=== PATIENT | male | born 1965 | race Caucasian/White ===

== ENCOUNTER 2023-10-06 19:20 | Emergency (ER) | payer OTHER, SELFPAY ==
[2023-10-06 19:22] VITALS: BP 165/88
[2023-10-06 19:38] VITALS: BP 162/90
[2023-10-06 19:39] LABS: Glucose - Point of Care 152 mg/dl (70-99)
[2023-10-06 19:41] VITALS: BMI 30.2
[2023-10-06 19:59] LABS: % Basophils 0.7 % (0-2); % Eosinophils 2.4 % (0-6); % Immature Granulocytes 0.4 % (0-0.5); % Lymphocytes 23.6 % (20.5-51.1); % Monocytes 7.7 % (1.7-9.3); % Neutrophils 65.2 % (42.2-75.2); Absolute Eosinophils 0.1 10^3/uL (0-0.7); Absolute Lymphocytes 1.3 10^3/uL (1.2-3.4); Absolute Monocytes 0.4 10^3/uL (0.1-0.6); Absolute Neutrophils 3.5 10^3/uL (1.4-6.5); Hematocrit 40.2 % (39.0-52.0); Hemoglobin 14.8 g/dL (13.0-18.0); Mean Corp Hgb Conc. 36.8 g/dL (33.0-37.0); Mean Corpuscular Volume 81.4 fL (80.0-94.0); Mean Platelet Volume 9.7 fL (7.4-10.4); Nucleated Red Blood Cells % 0 % (-); Platelet Count 186 10^3/uL (130-400); Red Blood Cell Count 4.94 10^6/uL (4.70-6.10); Red Cell Dist. Width 13.3 % (11.5-14.5); White Blood Cell Count 5.3 10^3/uL (4.8-10.8)
[2023-10-06 20:00] VITALS: BP 134/86
[2023-10-06 20:15] LABS: ALT (SGPT) 56 U/L (0-50); AST (SGOT) 34 U/L (17-59); Albumin 4.7 g/dl (3.5-5.0); Alkaline Phosphatase 72 U/L (38-126); Blood Urea Nitrogen 9 mg/dl (9-20); Calcium 10.3 mg/dl (8.4-10.2); Carbon Dioxide 28 mmol/L (22-30); Chloride 100 mmol/L (98-107); Estimated Creatinine Clearance 123 ml/min; Glucose 157 mg/dl (70-99); Potassium 3.9 mmol/L (3.5-5.1); Sodium 138 mmol/L (135-145); Total Bilirubin 0.8 mg/dl (0.2-1.3); Total Protein 7.3 g/dl (6.3-8.2); eGFR > 60.00
[2023-10-06] MEDS: NSS 1000 IV (20:18)
[2023-10-06] MEDS: ZOFRAN 4 MG IV (20:18)
[2023-10-06 20:24] LABS: Troponin I < 0.012 ng/ml
--- NOTE | 2023-10-06 20:32 | ED.GENMED ---
History of Present Illness
General
Chief Complaint: Dizziness
Source: patient and family
Exam Limitations: none
Time Seen by Provider: 10/06/23 19:58
Nursing documentation reviewed up to this point in time: agreed with
Travel History
Have you had any contact with someone who has COVID-19?: No
Do you have any symptoms of coronavirus? Fever > 100 degrees, chills, cough, shortness of breath, sore throat, loss of taste or smell, muscle aches, or headache?: No
History of Present Illness
History of Present Illness:
58-year-old male diabetes hypertension presents with dizziness, fairly acute onset this morning when he woke up worse with head movement and sitting up better with rest improved and then worsened later in the day, appears to be worse when he moves
his head to the right, nausea without vomiting, no headache, type 2 diabetes on metformin started Ozic a few weeks ago, ended July had upper respiratory infection negative home COVID test, treated with antibiotics steroids, improved
wondering if this could be a lingering effect of this upper respiratory infection, status or speech arm or leg weakness, no headaches, had a similar less severe episode of vertigo years ago treated with what sounds like meclizine
Past History
Past History
ED Past Medical History: GERD, NIDDM and Hypothyroidism
ED Past Surgical History: None
Social History
Tobacco: Non-smoker
Alcohol: Occasional
Drug: None
Personal:
Living: with family
Employment: Employed
Review of Systems
Review of Systems
All Other Systems: Not applicable
Constitutional: Denies fever, fatigue or chills
EENT: Denies no symptoms
Respiratory: Reports no symptoms
Cardiac: Reports no symptoms
ABD/GI: Reports nausea; Denies abdominal pain or vomiting
: Reports no symptoms
Neurological: Reports dizzy; Denies weakness or numbness
Endocrine: Reports no symptoms
Hematologic/Lymphatic: Reports no symptoms
Phy Exam
Physical Exam
Physical Exam:
Physical Exam
General: 58 male normal mental status nontoxic
Neck: No jaundice
Heart: s1/s2 regular rate and rhythm, no murmur. equal radial pulses.
Lungs: no acute respiratory distress. clear bilaterally
Abdomen: Not
Neuro: alert and oriented. no focal neurological deficits 2 beats of horizontal nystagmus to the right no pronator drift normal finger-nose bilaterally
Skin: no rash
Psychiatric: well kept. interactive and cooperative
Extremities: no edema.
Course
Orders/Labs/Results
Orders:
Orders
10/06/23 19:28
Electrocardiogram (*1) Urgent
Reason for Study: Vertigo / Dizzy
EKG- Treatment ONCE
Accucheck Once [Bedside Glucose Monitoring-ONCE] As Directed
10/06/23 19:51
CMP [Comprehensive Metabolic Panel] Urgent
Complete Blood Count/With Diff Urgent
Troponin I Urgent
10/06/23 20:13
0.9% Sodium Chloride 1000 ml [Nss] 1,000 ml IV BOLUS
Ondansetron Injectable [Zofran] 4 mg IV NOW STA
10/06/23 20:14
CT Head W/o Iv Contrast Urgent
Comment:
Reason For Exam: serve ertigo
10/06/23 20:20
Dexamethasone Sod Phosphate [Decadron] 10 mg IV NOW STA
10/06/23 20:40
COVID-19 Antigen Urgent
Source: Nasal Swab
10/06/23 22:44
Diphenhydramine [Benadryl] 25 mg IV NOW STA
Abnormal Lab Results
10/06/23 10/06/23
19:33 19:51
Glucose 157 H mg/dl
(70-99)
Calcium 10.3 H mg/dl
(8.4-10.2)
ALT 56 H U/L
(0-50)
POC Glucose 152 H mg/dl
(70-99)
10/06/23 19:51
10/06/23 19:51
Vital Signs
Initial and Last Documented VS:
Initial Vital Signs
Temp Pulse Resp BP Pulse Ox
98 F 80 22 165/88 100
10/06/23 19:22 10/06/23 19:22 10/06/23 19:22 10/06/23 19:22 10/06/23 19:22
Last Documented Vital Signs
Temp Pulse Resp BP Pulse Ox
98 F 71 17 137/78 95
10/06/23 19:22 10/06/23 23:45 10/06/23 23:45 10/06/23 23:00 10/06/23 23:45
MDM/Problems Addressed
Differential Diagnosis Includes:
Benign positional vertigo, electrolyte abnormality, acidosis or electrolyte abnormality from Ozempic or metformin hypoglycemia doubt CVA or stroke
MDM/Problems Addressed:
Dizziness vertigo
Chronic conditions affecting care: DM and HTN
Acute Exacerbation and/or Progression of Chronic Illness: DM and HTN
*Radiology
Radiology exam reviewed: preliminary read by ED provider
*Pulse Oximetry
Patient hypoxic: no
*EKG
Interpreted by ED Provider?: Yes
Interpretation: normal
Comparison EKG: no comparison EKG present
Heart Rate: 78
Rate: normal
Rhythm: sinus
Ischemia: no ischemia
*Service Manager Interpretation
Rate: normal
Interpretation: normal
Heart Rate: 78
Rhythm: sinus
*Critical Care Note
Total Time (30-74mins, 75-104mins- exclusive of procedures): Not Applicable
Update Note
Update Note:
Update, symptoms appear to be consistent with benign positional vertigo, acute onset exacerbated by head movement Liss-Hallpike, he has an otherwise nonfocal neurologic exam, normal finger-nose no pronator drift,
10:45 PM patient feeling a bit better still symptomatic when he sits up and turns his head, labs EKG noted CT pending, will try dose of Benadryl
11:[address] report noted
12:30 AM patient feeling better resting comfortably, looks okay to go home given information for vestibular therapy
ED Attending Note
-
Portions of this chart may have been created with voice recognition software.� Occasional wrong word or��sound alike� substitutions may have occurred due to the inherent limitations of voice recognition software.
Discharge Plan
Departure
Patient Disposition: Home (Routine Discharge)
Date of Disposition: 10/07/23
Time of Disposition: 00:34
Patient with high blood pressure during this ER visit?: No
Condition: Good
Covid-19: Not Applicable
Discharge Problem:
Vertigo
Instructions: Vertigo (a Type of Dizziness) (DC)
Prescriptions:
New
meclizine 25 mg tablet
25 mg PO TID PRN (Reason: dizziness) Qty: 20 0RF
No Action
allopurinol 100 MG tablet
200 mg PO DAILY
levothyroxine [Levoxyl] 100 MCG tablet
100 mcg PO DAILY
testosterone [AndroGel] 5 GRAMS gel in packet
5 grams topical DAILY
amoxicillin 500 MG capsule
500 mg PO TID Qty: 20 0RF
Referrals:
Loc Macedo DO [Family Provider] - Next open appointment
Activity Restrictions/Additional Instructions:
Drink plenty of fluids,
Consider vestibular therapy-see handout for information
Interventions
Interventions:
*Risk Screen - Suicide Last Done: 10/06/23 19:22
*General Assessment Last Done: 10/06/23 19:52
*Neglect/Abuse Screening Last Done: 10/06/23 19:22
ED- Fall Risk Assessment Last Done: 10/06/23 20:25
*ED COVID-19 Vaccine History Last Done: 10/06/23 19:52
ED- Neurological Assessment Last Done: 10/06/23 19:53
ED- Cardiac Assessment Last Done: 10/06/23 20:25
[2023-10-06] MEDS: DECADRON 10 MG IV (20:37)
[2023-10-06 21:00] VITALS: BP 140/78
[2023-10-06 21:04] LABS: COVID-19 Antigen Negative (Negative)
[2023-10-06 22:00] VITALS: BP 138/77
[2023-10-06] MEDS: BENADRYL 25 MG IV (22:48)
[2023-10-06 23:00] VITALS: BP 137/78
[2023-10-07] VITALS: BP 128/75
== END 2023-10-07 00:54 | disposition home or self-care (01) ==
LOC: EMR 19:20
PROVIDERS: Emergency Medicine; EMERGENCY PHYSICIAN Emergency Medicine; FAMILY PHYSICIAN Family Medicine
DX: R42 Dizziness and giddiness (principal); R11.0 Nausea; Z11.52 Encounter for screening for COVID-19; E11.9 Type 2 diabetes mellitus without complications; K21.9 Gastro-esophageal reflux disease without esophagitis; E03.9 Hypothyroidism, unspecified; M10.9 Gout, unspecified; F32.A Depression, unspecified; Z86.16 Personal history of COVID-19
CPT/HCPCS: 99285; 96374; 96375 ×2; 96361; 70450; 80053; 82962; 84484; 85025; 87811; 93005